=== PATIENT | female | born 1945 | race Native Hawaiian/Other Pacific Islander ===

== ENCOUNTER 2016-10-14 14:43 | Outpatient (CLI) | payer OTHER, MEDICARE ==
[~2016-10-14 14:43] MED LIST: ALEN70TA19 PO; ANAS1TAB PO; CALCIUM600 M1 PO; CRANBERRY125 MG PO; FISH OIL PO; IRON325 MG PO; LEVO175T3 PO; LYRICA75 MG PO; MACRODANTIN100 MG PO; NIACIN500 M2 PO; PROBIOTI1 PO
[2016-10-14 15:32] LABS: PLATELET COUNT 150 K/uL (152-353)
[2016-10-14 15:51] LABS: POTASSIUM 4.4 mmol/L (3.6-5.2)
== END 2016-10-14 19:10 | disposition home or self-care (01) ==
LOC: LAB 14:43
PROVIDERS: Nurse Practitioner Family
DX: Z00.00 Encounter for general adult medical examination without abnormal findings (principal); E78.4 Other hyperlipidemia; E03.8 Other specified hypothyroidism; Z85.3 Personal history of malignant neoplasm of breast; N39.0 Urinary tract infection, site not specified; Z79.899 Other long term (current) drug therapy; Z51.81 Encounter for therapeutic drug level monitoring; R73.09 Other abnormal glucose
CPT/HCPCS: 80053; 80061; 80074; 83036; 84436; 84443; 85027

== ENCOUNTER 2016-12-21 07:23 | Outpatient (CLI) | payer OTHER, MEDICARE | END 2016-12-21 19:42 | disposition home or self-care (01) | LOC: NM 07:23 | DX: R07.89 Other chest pain (principal); R06.09 Other forms of dyspnea; R53.83 Other fatigue | CPT/HCPCS: A9500; J2785 ==

== ENCOUNTER 2017-01-21 08:51 | Outpatient (CLI) | payer OTHER, MEDICARE | END 2017-01-21 10:00 | disposition home or self-care (01) | LOC: MAMMO 08:51 | DX: Z85.3 Personal history of malignant neoplasm of breast (principal) | CPT/HCPCS: G0206-TC ==

== ENCOUNTER 2017-03-25 09:18 | Outpatient (CLI) | payer OTHER, MEDICARE | END 2017-03-25 10:20 | disposition home or self-care (01) | LOC: RAD 09:18 | DX: M79.672 Pain in left foot (principal); R60.0 Localized edema ==

== ENCOUNTER 2017-05-05 13:57 | Outpatient (CLI) | payer OTHER, MEDICARE ==
[2017-05-05 14:42] LABS: PLATELET COUNT 140 K/uL (152-353)
[2017-05-05 15:19] LABS: POTASSIUM 4.5 mmol/L (3.6-5.2)
== END 2017-05-05 15:00 | disposition home or self-care (01) ==
LOC: LAB 13:57
PROVIDERS: Nurse Practitioner Family
DX: E78.4 Other hyperlipidemia (principal); E03.8 Other specified hypothyroidism; Z85.3 Personal history of malignant neoplasm of breast; Z79.899 Other long term (current) drug therapy; Z51.81 Encounter for therapeutic drug level monitoring; E66.8 Other obesity
CPT/HCPCS: 80053; 80061; 83036; 84436; 84443; 85027

== ENCOUNTER 2017-08-03 13:44 | Outpatient (CLI) | payer OTHER, MEDICARE ==
[2017-08-03 14:00] LABS: PLATELET COUNT 129 K/uL (152-353)
[2017-08-03 14:26] LABS: POTASSIUM 4.4 mmol/L (3.6-5.2)
== END 2017-08-03 19:03 | disposition home or self-care (01) ==
LOC: LAB 13:44
PROVIDERS: Nurse Practitioner Family
DX: E78.4 Other hyperlipidemia (principal); E03.8 Other specified hypothyroidism; N39.0 Urinary tract infection, site not specified; Z79.899 Other long term (current) drug therapy; Z51.81 Encounter for therapeutic drug level monitoring
CPT/HCPCS: 80053; 80061; 83036; 84436; 84443; 85027

== ENCOUNTER 2017-09-14 10:36 | Outpatient (CLI) | payer OTHER, MEDICARE | END 2017-09-14 19:21 | disposition home or self-care (01) | LOC: RAD 10:36 | DX: R05 Cough (principal); J18.9 Pneumonia, unspecified organism ==

== ENCOUNTER 2017-10-25 10:53 | Outpatient (CLI) | payer OTHER, MEDICARE | END 2017-10-25 14:00 | disposition home or self-care (01) | LOC: RESP 10:53 | DX: R06.02 Shortness of breath (principal) | CPT/HCPCS: 94640; 94664 ==

== ENCOUNTER 2017-11-08 13:57 | Outpatient (CLI) | payer OTHER, MEDICARE ==
[2017-11-08 14:55] LABS: POTASSIUM 4.2 mmol/L (3.6-5.2)
[2017-11-08 17:38] LABS: PLATELET COUNT 143 K/uL (152-353)
== END 2017-11-08 22:56 | disposition home or self-care (01) ==
LOC: LAB 13:57
PROVIDERS: Nurse Practitioner Family
DX: E78.4 Other hyperlipidemia (principal); E03.8 Other specified hypothyroidism; Z85.3 Personal history of malignant neoplasm of breast; Z79.899 Other long term (current) drug therapy; E66.8 Other obesity; Z51.81 Encounter for therapeutic drug level monitoring
CPT/HCPCS: 80053; 80061; 83036; 84436; 84443; 85027

== ENCOUNTER 2018-01-24 13:05 | Outpatient (CLI) | payer OTHER, MEDICARE | END 2018-01-24 22:20 | disposition home or self-care (01) | LOC: MAMMO 13:05 | DX: Z85.3 Personal history of malignant neoplasm of breast (principal) ==

== ENCOUNTER 2018-02-09 14:01 | Outpatient (CLI) | payer OTHER, MEDICARE ==
[2018-02-09 14:24] LABS: PLATELET COUNT 151 K/uL (152-353)
[2018-02-09 14:49] LABS: POTASSIUM 4.5 mmol/L (3.6-5.2)
== END 2018-02-09 19:42 | disposition home or self-care (01) ==
LOC: LAB 14:01
PROVIDERS: Nurse Practitioner Family
DX: E78.4 Other hyperlipidemia (principal); E03.8 Other specified hypothyroidism; E66.8 Other obesity; Z79.899 Other long term (current) drug therapy; Z51.81 Encounter for therapeutic drug level monitoring
CPT/HCPCS: 80053; 80061; 83036; 84436; 84443; 85027

== ENCOUNTER 2018-11-30 08:34 | Outpatient (CLI) | payer OTHER, MEDICARE | END 2018-11-30 20:59 | disposition home or self-care (01) | LOC: RESP 08:34 | DX: J43.2 Centrilobular emphysema (principal) ==

== ENCOUNTER 2019-01-16 11:16 | Outpatient (CLI) | payer OTHER, MEDICARE ==
[2019-01-16 12:00] LABS: PLATELET COUNT 141 K/uL (152-353)
[2019-01-16 12:11] LABS: POTASSIUM 4.1 mmol/L (3.6-5.2)
== END 2019-01-16 23:03 | disposition home or self-care (01) ==
LOC: LABW 11:16
PROVIDERS: Internal Medicine
DX: N18.3 Chronic kidney disease, stage 3 (moderate) (principal)
CPT/HCPCS: 36415; 80053; 81000; 82306; 82330; 82570; 83735; 83970; 84100; 84155; 85027

== ENCOUNTER 2019-03-09 10:56 | Outpatient (CLI) | payer OTHER, MEDICARE | END 2019-03-09 21:44 | disposition home or self-care (01) | LOC: MAMMO 10:56 | DX: Z85.3 Personal history of malignant neoplasm of breast (principal) ==

== ENCOUNTER 2019-07-03 09:14 | Outpatient (CLI) | payer OTHER, MEDICARE ==
[2019-07-03 10:02] LABS: PLATELET COUNT 135 K/uL (152-353)
[2019-07-03 10:14] LABS: POTASSIUM 4.4 mmol/L (3.6-5.2)
== END 2019-07-03 19:35 | disposition home or self-care (01) ==
LOC: LABW 09:14
PROVIDERS: Internal Medicine
DX: N18.3 Chronic kidney disease, stage 3 (moderate) (principal)
CPT/HCPCS: 36415; 80053; 81000; 82306; 82330; 82570; 83735; 83970; 84100; 84155; 85027

== ENCOUNTER 2020-01-17 14:48 | Outpatient (CLI) | payer OTHER, MEDICARE ==
[2020-01-17 15:30] LABS: POTASSIUM 4.2 mmol/L (3.6-5.2)
[2020-01-17 15:34] LABS: PLATELET COUNT 123 K/uL (152-353)
== END 2020-01-17 19:10 | disposition home or self-care (01) ==
LOC: LABW 14:48
PROVIDERS: Internal Medicine
DX: N18.3 Chronic kidney disease, stage 3 (moderate) (principal)
CPT/HCPCS: 80053; 81000; 82306; 82330; 82570; 83735; 83970; 84100; 84155; 85027

== ENCOUNTER 2020-03-31 12:52 | Outpatient (CLI) | payer OTHER, MEDICARE | END 2020-03-31 19:21 | disposition home or self-care (01) | LOC: MAMMO 12:52 | DX: Z85.3 Personal history of malignant neoplasm of breast (principal) | CPT/HCPCS: G0279 ==

== ENCOUNTER 2020-08-11 08:29 | Outpatient (CLI) | payer OTHER, MEDICARE ==
[2020-08-11 08:57] LABS: PLATELET COUNT 149 K/uL (152-353)
== END 2020-08-11 21:06 | disposition home or self-care (01) ==
LOC: LABW 08:29
PROVIDERS: ATTEND Internal Medicine
DX: N18.30 Chronic kidney disease, stage 3 unspecified (principal)
CPT/HCPCS: 36415; 80053; 81000; 82306; 82330; 82570; 83735; 83970; 84100; 84155; 85027

== ENCOUNTER 2020-12-15 16:48 | Emergency (ER) | payer OTHER, MEDICARE ==
[~2020-12-15] VITALS: Ht 172.7 cm; Wt 88.5 kg
[2020-12-15 17:47] LABS: PLATELET COUNT 123 K/uL (152-353)
[2020-12-15 17:51] LABS: POTASSIUM 4.2 mmol/L (3.6-5.2)
[2020-12-15 19:55] VITALS: BP 145/72; TEMP 98.6
== END 2020-12-15 19:55 | disposition home or self-care (01) ==
LOC: ED 16:48
PROVIDERS: Emergency Medicine Emergency Medical Services
DX: K29.60 Other gastritis without bleeding (principal)
CPT/HCPCS: 80053; 81000; 82272; 83690; 85027; 96360; 96365; 99284

== ENCOUNTER 2021-02-02 07:14 | Outpatient (CLI) | payer OTHER, MEDICARE ==
[2021-02-10 10:12] LABS: PLATELET COUNT 138 K/uL (152-353)
[2021-02-10 10:13] LABS: POTASSIUM 4.5 mmol/L (3.6-5.2); SODIUM 142 mmol/L (136-145)
== END 2021-02-02 23:59 | disposition home or self-care (01) ==
LOC: LABW 07:14
PROVIDERS: ATTEND Internal Medicine
DX: N18.31 Chronic kidney disease, stage 3a (principal)
CPT/HCPCS: 36415; 80053; 81000; 82306; 82330; 82570; 83735; 83970; 84100; 84155; 85027

== ENCOUNTER 2021-04-02 10:29 | Outpatient (CLI) | payer OTHER, MEDICARE | END 2021-04-02 20:15 | disposition home or self-care (01) | LOC: MAMMO 10:29 | PROVIDERS: ATTEND Specialist | DX: Z85.3 Personal history of malignant neoplasm of breast (principal) | CPT/HCPCS: G0279 ==

== ENCOUNTER 2021-06-02 07:27 | Outpatient (CLI) | payer OTHER, MEDICARE ==
[2021-06-02 07:47] LABS: PLATELET COUNT 167 K/uL (152-353)
[2021-06-02 08:06] LABS: POTASSIUM 4.2 mmol/L (3.6-5.2)
== END 2021-06-02 20:01 | disposition home or self-care (01) ==
LOC: LABW 07:27
PROVIDERS: ATTEND Internal Medicine
DX: N18.31 Chronic kidney disease, stage 3a (principal)
CPT/HCPCS: 36415; 80053; 81000; 82306; 82330; 82570; 83735; 83970; 84100; 84155; 85027

== ENCOUNTER 2021-10-29 09:16 | Outpatient (CLI) | payer OTHER, MEDICARE | END 2021-10-29 19:57 | disposition home or self-care (01) | LOC: RAD 09:16 | PROVIDERS: ATTEND Nurse Practitioner Family | DX: E78.49 Other hyperlipidemia (principal); E03.8 Other specified hypothyroidism; D64.89 Other specified anemias; K21.9 Gastro-esophageal reflux disease without esophagitis; M81.0 Age-related osteoporosis without current pathological fracture; M54.89 Other dorsalgia; N18.30 Chronic kidney disease, stage 3 unspecified; G62.89 Other specified polyneuropathies; E66.9 Obesity, unspecified; M17.12 Unilateral primary osteoarthritis, left knee ==

== ENCOUNTER 2021-10-29 10:26 | Outpatient (CLI) | payer OTHER, MEDICARE | END 2021-10-29 19:59 | disposition home or self-care (01) | LOC: RAD 10:26 | PROVIDERS: ATTEND Nurse Practitioner Family | DX: M25.562 Pain in left knee (principal); M25.561 Pain in right knee; M17.0 Bilateral primary osteoarthritis of knee ==

== ENCOUNTER 2021-12-07 10:28 | Outpatient (CLI) | payer OTHER, MEDICARE | END 2021-12-07 18:58 | disposition home or self-care (01) | LOC: RAD 10:28 | PROVIDERS: ATTEND Nurse Practitioner Family | DX: E78.49 Other hyperlipidemia (principal); E03.8 Other specified hypothyroidism; D64.89 Other specified anemias; K21.9 Gastro-esophageal reflux disease without esophagitis; M81.0 Age-related osteoporosis without current pathological fracture; M54.89 Other dorsalgia; M25.569 Pain in unspecified knee; E66.9 Obesity, unspecified; R05.8 Other specified cough ==

== ENCOUNTER 2021-12-15 08:21 | Outpatient (CLI) | payer OTHER, MEDICARE ==
[2021-12-15 08:49] LABS: POTASSIUM 4.4 mmol/L (3.6-5.2)
[2021-12-15 08:58] LABS: PLATELET COUNT 167 K/uL (152-353)
== END 2021-12-15 18:55 | disposition home or self-care (01) ==
LOC: LABW 08:21
PROVIDERS: ATTEND Internal Medicine
DX: N18.31 Chronic kidney disease, stage 3a (principal)
CPT/HCPCS: 36415; 80053; 81000; 82306; 82330; 82570; 83735; 83970; 84100; 84156; 85027

== ENCOUNTER 2022-01-25 10:14 | Outpatient (CLI) | payer OTHER, MEDICARE | END 2022-01-25 18:46 | disposition home or self-care (01) | LOC: RAD 10:14 | PROVIDERS: ATTEND Nurse Practitioner Family | DX: K59.00 Constipation, unspecified (principal); R93.89 Abnormal findings on diagnostic imaging of other specified body structures ==

== ENCOUNTER 2022-08-05 13:52 | Outpatient (CLI) | payer OTHER, MEDICARE | END 2022-08-05 18:53 | disposition home or self-care (01) | LOC: MAMMO 13:52 | PROVIDERS: ATTEND Specialist | DX: Z08 Encounter for follow-up examination after completed treatment for malignant neoplasm (principal); Z85.3 Personal history of malignant neoplasm of breast; Z90.12 Acquired absence of left breast and nipple | CPT/HCPCS: G0279 ==

== ENCOUNTER 2022-08-25 11:57 | Outpatient (CLI) | payer OTHER, MEDICARE ==
[2022-08-25 12:23] LABS: PLATELET COUNT 194 K/uL (152-353)
[2022-08-25 12:52] LABS: POTASSIUM 4.6 mmol/L (3.6-5.2)
== END 2022-08-25 19:29 | disposition home or self-care (01) ==
LOC: LABW 11:57
PROVIDERS: ATTEND Nurse Practitioner Family
DX: D64.89 Other specified anemias (principal); N18.30 Chronic kidney disease, stage 3 unspecified; K59.00 Constipation, unspecified; N39.0 Urinary tract infection, site not specified; K21.9 Gastro-esophageal reflux disease without esophagitis; E78.49 Other hyperlipidemia; E03.8 Other specified hypothyroidism; M85.88 Other specified disorders of bone density and structure, other site; M81.0 Age-related osteoporosis without current pathological fracture; Z79.899 Other long term (current) drug therapy
CPT/HCPCS: 36415; 80053; 80061; 81002; 82043; 82570; 83036; 84436; 84443; 85027